=== PATIENT | female | born 1970 | race African-American/Black ===

== ENCOUNTER 2019-04-27 00:40 | Inpatient (IN) | payer OTHER ==
[2019-04-27] VITALS (7 sets, daily range): BP systolic 145–180; BP diastolic 87–95
[~2019-04-27] VITALS: Ht 167.6 cm; Wt 87.1 kg
[2019-04-27] MEDS ORDERED: ONDANSETRON 4 MG/2 ML VIAL IVP PRN ×2 (00:45→08:10)
[2019-04-27] MEDS ORDERED: LOSA25TA32 PO (07:02)
[2019-04-27] MEDS ORDERED: ATOR10TA PO (07:02)
[2019-04-27] MEDS ORDERED: DEXAMETHASONE 4 MG/ML VIAL ONE (07:27)
[2019-04-27] MEDS ORDERED: PROPOFOL 200 MG/20 ML VIAL IV ONE (07:27)
[2019-04-27] MEDS ORDERED: LIDOCAINE 2% 100 MG/5 ML SYR IVP ONE (07:27)
[2019-04-27] MEDS ORDERED: DESFLURANE 240 ML BTL INH ONE (07:27)
[2019-04-27] MEDS ORDERED: SUCCINYLCHOLINE CHLORIDE 200 MG/10 ML VIAL IVP ONE (07:27)
[2019-04-27] MEDS ORDERED: ROCURONIUM 50 MG/5 ML VIAL IV ONE (07:27)
[2019-04-27] MEDS ORDERED: KETOROLAC 30 MG/ML VIAL ONE (07:27)
[2019-04-27] MEDS ORDERED: MIDAZOLAM 2 MG/2 ML VIAL ONE (07:32)
[2019-04-27] MEDS ORDERED: fentaNYL 0.05 MG/ML VIAL ONE (07:32)
--- NOTE | 2019-04-27 08:26 | NUR ---
PATIENT HAS BEEN SCREENED AND CATEGORIZED LOW NUTRITION RISK. PATIENT WILL BE SEEN WITHIN 7 DAYS OF ADMISSION. 05/03/[address]
[2019-04-27] MEDS ORDERED: HYDROmorphone PFS 2 MG/ML SYR ONE (10:48)
[2019-04-27] MEDS: HYDROmorphone 1 MG/ML AMP IVP PRN ×5 (10:50→11:49)
--- NOTE | 2019-04-27 11:20 | NUR ---
PATIENT WHEELED ON FLOOR VIA BED. REPORT RECEIVED FROM ESCALATOR OPERATORFRANCES KNAPP AT BEDSIDE FOR CONTINUITY OF CARE. PATIENT AWAKE, C/O OF 10/10 ABD PAIN, LAST MEDICATED AT 1050. AT BEDSIDE. NO SOB OR DISTRESS NOTED ON ROOM AIR. PATIENT'S RIGHT AC IV INTACT, PATENT, AND ASYMPTOMATIC, CURRENTLY SALINE LOCKED. UPDATED BOARD. UPDATED PATIENT AND WITH PLAN OF CARE. THEY VERBALIZED UNDERSTANDING. WILL CALL DR. CAT FOR ORDERS. BED IN LOWEST POSITION, CALL LIGHT WITHIN REACH, WILL CONTINUE TO MONITOR PATIENT.
--- NOTE | 2019-04-27 13:20 | NUR ---
PAGED DR. CAT AGAIN TO FOLLOW UP. STATED THAT HE WILL PUT IN ORDERS. RN VERBALIZED UNDERSTANDING AND WILL CONTINUE TO MONITOR PATIENT.
--- NOTE | 2019-04-27 14:10 | NUR ---
OFFERED PATIENT PAIN MEDICATION. AFTER EXPLAINING SIDE EFFECTS, PATIENT REFUSED. WILL REASSESS PATIENT'S PAIN AND OFFER PRN PAIN MEDICATIONS AGAIN.
[2019-04-27] MEDS: oxyCODONE/APAP 5/325 MG 1 TAB TAB PO PRN (15:25)
--- NOTE | 2019-04-27 16:11 | NUR ---
Crane Hooker Note: Basic Screen: Yes High Risk DC Screen Painter: CATHERINE Hernandez Relationship: SISTER Pre-Admission Living Arrangements: Lives with Other Prior ADL Independent Current Home Health Name/Tel: N/A Current DME/02 Name/Tel: N/A Current Hospice Name/Tel: N/A Current Dialysis Name/Tel: N/A Healthcare Decision Maker: Patient Advance Directive No - REFUSED Physician Orders for Life Sustaining Treatment Form No Patient/Family Have Educational Needs No Information Taught: Advance Directive Community Resources Person Taught: Patient Teaching Tools: Verbal Factors Affecting Learning: None Participation Level: Active Evaluation: Verbalizes Understanding Needs Additional Education: No Discipline: Case Mgt/Social Svcs Tentative Discharge Plan/Destination: No Needs Identified Will require assistance post discharge: No Referred to Transition Rn: No Tentative Discharge Plan Summary: Patient is a 48 year old female admitted for symptomatic fibroid uterus. Patient has PMHX of hyperlipidemia. Patient was admitted from home. SW verified demographics with patient. Patient stated her PCP is Dr. Sixto Rand and that she was last seen February 2019. Patient reports no history of mental health and no history of substance abuse. Patient inquired about mental health services. SW provided education and benefits of utilizing mental health resources that are available for her. SW used motivational interviewing techniques and active listening to build rapport with patient. SW affirmed patient in her willingness to seek a therapist. SW provided education on advanced directive but patient refused. Patients tentative discharge plan is to return home. No further needs identified. Signature: JACKIE Venegas Date: Apr 27, 2019 Time: 16:10
--- NOTE | 2019-04-27 16:45 | NUR ---
PATIENT AMBULATING AROUND FLOOR WITH FAMILY MEMBER. PATIENT TOLERATING AMBULATION. REPORTS GAS. WILL CONTINUE TO MONITOR PATIENT.
[2019-04-27] MEDS ORDERED: MORPHINE SULFATE 2 MG/ML SYR IVP PRN ×2 (17:10→20:00)
[2019-04-27] MEDS ORDERED: SIMETHICONE 80 MG TAB.CHEW PO PRN (17:25)
--- NOTE | 2019-04-27 17:25 | NUR ---
PATIENT OUT OF BED AND AMBULATING AROUND FLOOR WITH FAMILY MEMBER. PT OF NAUSEA D/T GAS AT THIS TIME, REFUSING ZOFRAN PRN AT THE MOMENT. WILL REASSESS AND OFFER PATIENT MEDICATION IF SHE REQUESTS IT. AND FAMILY MEMBER AT SIDE. WILL CONTINUE TO MONITOR PATIENT.
[2019-04-27] MEDS: KETOROLAC 30 MG/ML VIAL IM/IVP SCH (18:21)
--- NOTE | 2019-04-27 18:31 | NUR ---
ORDERED MEDICATION GIVEN. PATIENT TOLERATED IT WELL. FAMILY AT BEDSIDE. NO COMPLAINTS AT THIS TIME. CALL LIGHT WITHIN REACH. WILL CONTINUE TO MONITOR PATIENT.
--- NOTE | 2019-04-27 19:27 | NUR ---
REPORT GIVEN TO BIOFUELS PLANT OPERATIONS ENGINEER NURSE AT BEDSIDE FOR CONTINUITY OF CARE. PATIENT IN STABLE CONDITION.
--- NOTE | 2019-04-27 19:28 | NUR ---
RECEIVED BEDSIDE REPORT FROM AM SHIFT NURSE. PT IS LYING IN BED AWAKE AND ALERT. NO SOB OR DISTRESS NOTED. IV ACCESS NOTED ON RIGHT AC 20 GAUGE. PATENT AND INTACT. F/C IN PLACE, DRAINING WELL. PT IS AMBULATORY, BED IN LOW. SAFETY MEASURES IN PLACE. BOARD UPDATED. INITIAL ASSESSMENT DONE. CALL LIGHT WITHIN PATIENT REACH.
--- NOTE | 2019-04-27 22:10 | NUR ---
ROUNDS DONE AT THIS TIME. VISIBLE CHEST RISE AND FALL NOTED. WILL CONTINUE TO MONITOR PATIENT.
--- NOTE | 2019-04-27 23:50 | NUR ---
VITAL SIGNS TAKEN AT THIS TIME. VISIBLE CHEST RISE AND FALL NOTED. WILL CONTINUE TO MONITOR PATIENT.
[2019-04-28] MEDS: KETOROLAC 30 MG/ML VIAL IM/IVP SCH ×2 (00:35→05:13)
--- NOTE | 2019-04-28 02:16 | NUR ---
ROUNDS DONE AT THIS TIME. VISIBLE CHEST RISE AND FALL NOTED. WILL CONTINUE TO MONITOR PATIENT.
--- NOTE | 2019-04-28 06:30 | NUR ---
PT SEEN BY DR. CAT. NEW ORDERS MADE. DRESSING TO BE REMOVED BY AM NURSE, COVER WITH TELFA AND 2 PIECES OF TAPE. PLAN TO KEEP PT COMFORTABLE AND FREE OF PAIN.
[2019-04-28] MEDS ORDERED: IBUPROFEN 800 MG TAB PO PRN (06:35)
[2019-04-28] MEDS ORDERED: SIMETHICONE 80 MG TAB.CHEW PO PRN (06:35)
[2019-04-28] MEDS ORDERED: IBUPROFEN 600 MG TAB PO PRN (06:35)
--- NOTE | 2019-04-28 06:36 | NUR ---
MAYS CATHETER REMOVED PER DOCTORS ORDERS. 900 ML DRAINED FROM F/C.
--- NOTE | 2019-04-28 07:02 | NUR ---
PT IN STABLE CONDITION. CALL LIGHT WITHIN PATIENT REACH. WILL ENDORSE TO AM SHIFT NURSE FOR CONTINUITY OF CARE.
--- NOTE | 2019-04-28 07:25 | NUR ---
RECEIVED REPORT FROM NIGHT RN. PATIENT IS FULL CODE, NKA. CURRENTLY AWAKE AND IN BED. AAOX4, ON ROOM AIR. PT IS AMBULATORY. IV TO RIGHT AC 20G SALINE LOCK. SKIN IS INTACT OTHER THAN SX INCISION. REGULAR DIET. WILL REVIEW AND CONTINUE [facility] PLAN OF CARE FOR THE DAY.
[2019-04-28 08:00] VITALS: BP 133/81
--- NOTE | 2019-04-28 08:30 | NUR ---
ADMINISTERED MORNING MEDICATION AND PAIN MEDICATION FOR PAIN 11/15. WILL RE-ASSESS. VITAL SIGNS WNL PRIOR TO ADMINISTRATION.
[2019-04-28] MEDS: ATORVASTATIN 20 MG TAB PO SCH (08:34)
[2019-04-28] MEDS: LOSARTAN 25 MG TAB PO SCH (08:34)
--- NOTE | 2019-04-28 12:00 | NUR ---
PATIENT RESTING QUIETLY IN BED. NO COMPLAINTS AT THIS TIME
--- NOTE | 2019-04-28 13:38 | NUR ---
PATIENT AMBULATING AROUND HALLWAY. TOLERATING WELL, NO SOB NOTED. NO SIGNS OF RESPIRATORY DISTRESS
[2019-04-28] MEDS: oxyCODONE/APAP 5/325 MG 1 TAB TAB PO PRN (14:45)
--- NOTE | 2019-04-28 14:46 | NUR ---
ADMINISTERED PERCOCET PROPHYLACTICALLY PRIOR TO WOUND DRESSING CHANGE. WILL RETURN IN 20-30 MIN TO CHANGE DRESSING.
--- NOTE | 2019-04-28 15:20 | NUR ---
CHANGED PATIENTS ABDOMINAL WOUND DRESSING. PATIENT TOLERATED WELL. INCISION AND MANNY ARE CLEAN, DRY, AND INTACT. ADDRESSED WTIH TEFLA AND ABD PAD AND TAPED DOWN WITH PAPER TAPE.
--- NOTE | 2019-04-28 16:40 | NUR ---
PATIENT IS AMBULATING AROUND HALLWAY. PATIENT TOLERATED WELL, NO SOB, NO RESP DISTRESS.
--- NOTE | 2019-04-28 17:23 | NUR ---
PATIENT RESTING QUIETLY IN BED. FAMILY AT BEDSIDE
--- NOTE | 2019-04-28 18:34 | NUR ---
ADMINISTERED BENADRYL FOR BODY ITCHING. PATIENT RESTING QUIETLY IN BED, FAMILY AT BEDSIDE. WILL ENDORSE TO BANQUET BARTENDER RN FOR CONTINUITY OF CARE
--- NOTE | 2019-04-28 19:35 | NUR ---
RECEIVED FROM AM RN IN BED SITTING UP AWAKE AND ALERT. NO SOB. ABLE TO VERBALIZE NEEDS WELL IN UPPER SORBIAN. CARE PLANS FOR THE NIGHT DISCUSSED WITH HER AND CALL LIGHT WITH IN REACH. PT. NO COMPLAINTS OF ANY PAIN AT THIS TIME. ENCOURAGED TO CALL FOR ANY HELP SHE MAY NEED.
[2019-04-28] MEDS: ZOLPIDEM 5 MG TAB PO SCH (21:00)
[2019-04-29] VITALS: BP 141/77
--- NOTE | 2019-04-29 05:10 | NUR ---
PT. AWAKE AT THIS TIME. GOOD AFFECT. NO COMPLAINTS DONE. DRESSING TO ABDOMEN INTACT AND DRY.
--- NOTE | 2019-04-29 05:12 | NUR ---
PLEASE SEE ADDED NOTES IN CHART.
[2019-04-29] MEDS: oxyCODONE/APAP 5/325 MG 1 TAB TAB PO PRN (07:00)
[2019-04-29 07:12] VITALS: BP 165/76
--- NOTE | 2019-04-29 07:25 | NUR ---
RECEIVED PT FROM NIGHT NURSE. PT AWAKE IN BED AAOX4. PT RECEIVED PAIN MEDICATIONS FROM NIGHT NURSE AT 0700, WILL REASSESS. LOWER ABDOMEN SURGICAL WOUND, DRESSING DRY AND INTACT. IV IN PLACE ASYMPTOMATIC AND IN R AC HEP LOCK. RESPIRATIONS EVEN AND UNLABORED ON ROOM AIR. SAFETY MEASURE SIN PLACE. CALL LIGHT WITHIN REACH. WILL CONTINUE TO MONITOR.
[2019-04-29] MEDS: LOSARTAN 25 MG TAB PO SCH (09:39)
[2019-04-29] MEDS: ATORVASTATIN 20 MG TAB PO SCH (09:39)
--- NOTE | 2019-04-29 09:45 | NUR ---
MEDICATIONS ADMINISTERED PER ORDER. PT TOLERATED WELL. NO DISTRESS NOTED. WILL CONTINUE TO MONITOR.
--- NOTE | 2019-04-29 12:06 | NUR ---
PT IN BED, SUPINE. AAOX4. DENIES PAIN AT THIS TIME. NO DISTRESS NOTED. SAFETY MEASURES IN PLACE. CALL LIGHT WITHIN REACH. WILL CONTINUE TO MONITOR.
--- NOTE | 2019-04-29 14:20 | NUR ---
PT REPORTS ABDOMINAL PAIN OF 7 AND REQUESTS TO NOT RECEIVE PERCOCET BECAUSE IT CAUSES HER TO BE ITCHY. IBUPROFEN 800MG GIVEN AT THIS TIME. WILL REEVALUATE.
[2019-04-29] MEDS ORDERED: HYDROcodone/APAP 5/325 MG 1 TAB TAB PO PRN (15:35)
[2019-04-29] MEDS ORDERED: DOCUSATE SODIUM 100 MG GELCAP PO SCH (15:40)
[2019-04-29] MEDS ORDERED: BISACODYL 5 MG TABEC PO SCH (15:40)
[2019-04-29 16:00] VITALS: BP 146/67
--- NOTE | 2019-04-29 16:12 | NUR ---
MEDICATIONS ADMINISTERED PER ORDER. PT TOLERATED WELL. NO DISTRESS NOTED. DENIES PAIN AT THIS TIME. WILL CONTINUE TO MONITOR.
--- NOTE | 2019-04-29 18:37 | NUR ---
SURGICAL DRESSING CHANGE DONE AT THIS TIME.
--- NOTE | 2019-04-29 19:15 | NUR ---
REPORT GIVEN TO NIGHT NURSE FOR CONTINUITY OF CARE.
--- NOTE | 2019-04-29 19:16 | NUR ---
RECEIVED BEDSIDE REPORT FROM DAY SHIFT NURSE. PT AWAKE IN BED AAOX4. LOWER ABDOMEN SURGICAL WOUND, DRESSING DRY AND INTACT. IV SITE ON RAC 20G, SL, PATENT, INTACT, ASYMPTOMATIC. RESPIRATIONS EVEN AND UNLABORED ON ROOM AIR. SAFETY MEASURE SIN PLACE. CALL LIGHT WITHIN REACH. WILL CONTINUE TO MONITOR.
[2019-04-29] MEDS: ZOLPIDEM 5 MG TAB PO SCH (21:00)
--- NOTE | 2019-04-29 21:00 | NUR ---
GIVEN MARYLU MD ORDERED. PT TOLERATED WELL.
--- NOTE | 2019-04-29 22:22 | NUR ---
PT SLEEPING IN BED. NO ACUTE DISTRESS NOTED.
[2019-04-30] VITALS: BP_SYST 151; BP_SYST 162; BP_DIAS 69; BP_DIAS 83
--- NOTE | 2019-04-30 | NUR ---
VS CHECKED, WITHIN PT'S BASELINE.
--- NOTE | 2019-04-30 01:30 | NUR ---
RECEIVED BEDSIDE REPORT FROM MARBLE CEILING INSTALLER RN RAVIN, FOR PT'S CONTINUITY OFC ARE. PT IS LYING DOWN ASLEEP, WITH NO SIGNS OF DISTRESS. WILL CONTINUE TO MONITOR PT.
--- NOTE | 2019-04-30 01:30 | NUR ---
ENDORSED PT TO ALIX FOR CONTINUOUS CARE. PT IN STABLE CONDITION.
--- NOTE | 2019-04-30 02:30 | NUR ---
PT REQUESTED FOR WARM BLANKET AND ORANGE JUICE. DENIES ANY PAIN AT THIS TIME. WILL CONTINUE TO MONITOR PT.
--- NOTE | 2019-04-30 04:00 | NUR ---
PT LYING DOWN ASLEEP WITH NO SIGNS OF DISTRESS. WILL ENDORSE TO AM SHIFT RN FOR PT'S CONTINUITY OF CARE.
--- NOTE | 2019-04-30 06:10 | NUR ---
PT LYING DOWN ASLEEP WITH NO SIGNS OF DISTRESS. WILL ENDORSE TO AN SHIFT RN FOR PT'S CONTINUITY OF CARE.
--- NOTE | 2019-04-30 07:25 | NUR ---
RECEIVED PT FROM NIGHT NURSE. PT IN BED WITH EYES CLOSED, AROUSABLE TO SPEECH, AAOX4. DENIES PAIN AT THIS TIME. NO DISTRESS NOTED. RESPIRATIONS EVEN AND UNLABORED ON ROOM AIR, CLEAR BREATH SOUNDS. IV IN PLACE PATENT AND ASYMPTOMATIC SL IN R AC SALINE LOCKED. SURGICAL WOUND IN LOWER ABDOMEN S/P HYSTERECTOMY. SAFETY MEASURES IN PLACE. BED IN LOW POSITION. CALL LIGHT WITHIN REACH. WILL CONTINUE TO MONITOR.
[2019-04-30] MEDS: ATORVASTATIN 20 MG TAB PO SCH (08:50)
[2019-04-30] MEDS: LOSARTAN 25 MG TAB PO SCH (08:50)
--- NOTE | 2019-04-30 08:53 | NUR ---
MEDICATIONS ADMINISTERED PER ORDER. PT TOLERATED WELL. NO DISTRESS NOTED. WILL CONTINUE TO MONITOR.
[2019-04-30] MEDS ORDERED: BISACODYL 5 MG TABEC PO SCH (09:00)
[2019-04-30] MEDS ORDERED: DOCUSATE SODIUM 100 MG GELCAP PO SCH (09:00)
[2019-04-30] MEDS ORDERED: HYDR-5122 PO (11:03)
[2019-04-30] MEDS ORDERED: ZOLP10TA1 PO (11:03)
[2019-04-30] MEDS ORDERED: IBUP200C97 PO (11:03)
--- NOTE | 2019-04-30 11:20 | NUR ---
PT IN BED, AWAKE TALKING ON THE PHONE. NO DISTRESS NOTED. PT DENIES PAIN AT THIS TIME. WILL CONTINUE TO MONITOR.
--- NOTE | 2019-04-30 13:35 | NUR ---
PT IN BED, AWAKE. DENIES PAIN. NO DISTRESS NOTED. SAFETY MEASURES IN PLACE. CALL LIGHT WITHIN REACH. WILL CONTINUE TO MONITOR.
[2019-04-30 13:39] VITALS: BP 168/81
--- NOTE | 2019-04-30 14:15 | NUR ---
PT DISCHARGED AT THIS TIME. FOLLOWUP AND DISCHARGE EDUCATION GIVEN, PT VERBALIZES UNDERSTANDING. DISCHARGE PAPERWORK REVIEWED AND SIGNED BY PT. IV SITES REMOVED WITH MINIMAL BLOOD LOSS AND LUMEN INTACT. ID BANDS REMOVED. SURGICAL WOUND PHOTOGRAPHED. VITAL SIGNS STABLE. RESPIRATIONS EVEN AND UNLABORED ON ROOM AIR. PT DENIES PAIN, NO DISTRESS NOTED. PT REFUSED FLU SHOT. BELONGINGS REVIEWED AND RETURNED TO PT. ESCORTED PT OFF UNIT ON FOOT, WHERE SHE LEFT HOME IN A PRIVATE VEHICLE DRIVEN BY HER SIGNIFICANT OTHER.
--- NOTE | 2019-05-02 15:03 | NUR ---
CONTACTED PATIENT'S PCP DR. ALFREDO FOWLER'S OFFICE AT [phone] REGARDING POST DC APPOINTMENT, NO ANSWER. LINE KEPT ON RINGING, NO VOICEMAIL. WILL FOLLOW UP. Addendum: 05/02/19 at 1518 by Yoli Dumont CONTACTED PATIENT'S PCP AGAIN, ABLE TO SPEAK TO GILLIAN REGARDING POST DC APPOINTMENT. SHE PROVIDED ME WITH May AT 1400. ADDRESS TO THE CLINIC IS [address] [place] [id number]. CONTACTED THE PATIENT AT [phone] REGARDING HER APPOINTMENT, ABLE TO VERBALIZE UNDERSTANDING.
== END 2019-04-30 14:15 | disposition home or self-care (01) | DRG 519 ==
LOC: MMU 05:30
PROVIDERS: ADMIT Obstetrics & Gynecology; ATTEND Obstetrics & Gynecology
PROC: 0UB10ZZ Excision of Left Ovary, Open Approach (ICD-10-PCS; 2019-04-27)
PROC: 0UT90ZL Resection of Uterus, Supracervical, Open Approach (ICD-10-PCS; principal; 2019-04-27 07:30)
DX: D25.9 Leiomyoma of uterus, unspecified (principal); E66.9 Obesity, unspecified; N83.292 Other ovarian cyst, left side; I10 Essential (primary) hypertension; G47.00 Insomnia, unspecified; J02.9 Acute pharyngitis, unspecified; R14.3 Flatulence; G89.29 Other chronic pain; Z68.31 Body mass index [BMI] 31.0-31.9, adult
CPT/HCPCS: 36415; 86886; 86900; 86901; 87081; 88305; 88307; J0330; J0690; J1100; J1170; J1885; J2001; J2250; J2270; J2405; J2704; J3010; J3490; J7060; J7120; Q0163